=== PATIENT | female | born 1990 | race Caucasian/White ===

== ENCOUNTER 2016-08-12 20:48 | Emergency (ER) | payer OTHER ==
[2016-08-12 21:13] VITALS: BP 112/69; PULSE 129; TEMP 100.2; BMI 38.2
[2016-08-12] MEDS ORDERED: predniSONE 20 MG TABLET (UD) ONE (21:19)
[2016-08-12] MEDS ORDERED: ALBUTEROL SO4 2.5/IPRATROPIUM 0.5 INH SOL 3 ML VIAL.NEB. NEB ONE ×2 (21:20→21:30)
[2016-08-12] MEDS ORDERED: predniSONE 20 MG TABLET (UD) PO ONE (21:30)
--- NOTE | 2016-08-12 21:38 | PDOC ---
History of Present Illness - General Chief Complaint: Cold Symptoms Stated Complaint: LIGHTHEADED/COUGH/CHEST TIGHTNESS Time Seen by Provider: 08/12/16 21:30 History Source: Patient, Family Exam Limitations: No Limitations - History of Present Illness Initial Comments: 08/12/16 21:31 Patient is here with complaints of cough 2 weeks. States is really becoming worse and has some significant pleuritic chest pain. Has been using over-the- counter medications including NyQuil and DayQuil with some resolved. Timing/Duration: reports: just prior to arrival, getting worse Severity: reports: mild, moderate Associated Symptoms: reports: cough, fever/chills, lightheadedness, nasal congestion, nasal drainage Past History - Travel Traveled outside of the country in the last 30 days: No Close contact w/someone who was outside of country & ill: No - Past Medical History Allergies/Adverse Reactions: Allergies Allergy/AdvReac Type Severity Reaction Status Date / Time No Known Allergies Allergy Verified 08/12/16 20:56 Home Medications: Ambulatory Orders Albuterol 0.083% Nebulizer Saira [Ventolin 0.083% Nebulizer Soln -] 1 neb NEB Q4H PRN #30 vial 08/12/16 Azithromycin [Zithromax -] 250 mg PO UTDICT #6 tab 08/12/16 Prednisone [Deltasone -] 20 mg PO BID #10 tablet 08/12/16 - Surgical History Cholecystectomy: Yes - Psycho/Social/Smoking Cessation Hx Suicidal Ideation: No Smoking History: Never smoked Number of Cigarettes Smoked Daily: 0 Information on smoking cessation initiated: No Hx Alcohol Use: No Drug/Substance Use Hx: No Review of Systems - Review of Systems Able to Perform ROS?: Yes Is the patient limited Bulgarian proficient: Yes Constitutional: Yes: Symptoms Reported, See HPI, Fever, Loss of Appetite, Malaise HEENTM: Yes: Symptoms Reported, See HPI, Nose Congestion, Throat Pain Respiratory: Yes: Symptoms reported, See HPI, Cough, Wheezing Musculoskeletal: Yes: Symptoms Reported, See HPI, Muscle Pain, Joint Stiffness Integumentary: No: Symptoms Reported All Other Systems: Reviewed and Negative *Physical Exam - Vital Signs Last Vital Signs Temp Pulse Resp BP Pulse Ox 100.2 F H 129 H 16 112/69 97 08/12/16 20:57 08/12/16 20:57 08/12/16 20:57 08/12/16 20:57 08/12/16 20:57 - Physical Exam General Appearance: Yes: Nourished, Appropriately Dressed, Apparent Distress, Mild Distress, Moderate Distress HEENT: positive: AYESHA, TMs Normal (congestive but landmarks easily visualized), Pharynx Normal Neck: positive: Supple. negative: Lymphadenopathy (R), Lymphadenopathy (L) Respiratory/Chest: positive: Wheezing. negative: Lungs Clear (course in diminished breath sounds) Cardiovascular: positive: Regular Rate Gastrointestinal/Abdominal: positive: Soft Musculoskeletal: negative: Vertebral Tenderness Extremity: positive: Normal Inspection, Normal Range of Motion Integumentary: positive: Normal Color, Dry, Warm Neurologic: positive: information systems supervisor II-XII NML intact, Fully Oriented, Alert, Normal Mood/ Affect, Normal Response, Motor Strength 11/25 Progress Note - Progress Note Progress Note: Bronchitis, will treat with duo nebs and prednisone and reevaluate Medical Decision Making - Medical Decision Making 08/12/16 22:28 Much improved after 2 duo nebs, and 60 mg of prednisone. Will proceed with plan for Zithromax to treat bronchitis, and continue albuterol nebulizers through the weekend with prednisone. Will follow-up with PMD on Monday or Monday *DC/Admit/Observation/Transfer Diagnosis at time of Disposition: Bronchitis - Discharge Dispostion Disposition: HOME Condition at time of disposition: Stable Admit: No - Prescriptions Prescriptions: Prednisone [Deltasone -] 20 mg PO BID #10 tablet - Referrals Referrals: STAFF,NOT ON [Primary Care Provider] - - Patient Instructions Printed Discharge Instructions: DI for Acute Bronchitis Additional Instructions: Rest, drink lots of fluids: Teas, water, soups, Pedialyte Saltwater gargles Steamy showers/seem to face break up mucus Avoid contact with others until fevers and cough resolved Lots of handwashing and good hygiene Continue [id number] medications for symptomatic relief Tylenol or Motrin for fever and pain Zithromax until completed as directed Prednisone 40 mg daily 5 days Continue albuterol nebulizers every 4-6 hours for the next 3 days then as needed Followup with private physician in one to 2 days as needed Return to emergency department for worsened symptoms, fevers, dehydration - Post Discharge Activity Work/School Note: Back to Work
== END 2016-08-12 22:44 | disposition home or self-care (01) ==
LOC: JERFT 20:48
PROC: 3E0F7GC Introduction of Other Therapeutic Substance into Respiratory Tract, Via Natural or Artificial Opening (ICD-10-PCS; principal; 2016-08-12)
DX: J20.9 Acute bronchitis, unspecified (principal)
CPT/HCPCS: 94640; 99281-25